=== PATIENT | female | born 1970 | race Two or more races ===

== ENCOUNTER 2018-12-08 10:57 | Outpatient (CLI) | payer OTHER | END 2018-12-08 11:01 | disposition home or self-care (01) | LOC: SONOGRAMA 10:57 | DX: R22.40 Localized swelling, mass and lump, unspecified lower limb (principal) ==

== ENCOUNTER 2019-06-02 11:41 | Outpatient (CLI) | payer OTHER | END 2019-06-02 11:59 | disposition home or self-care (01) | LOC: SONOGRAMA 11:41 | DX: E04.1 Nontoxic single thyroid nodule (principal); Z87.891 Personal history of nicotine dependence ==

== ENCOUNTER → 2020-09-15 | Outpatient (CLI) | payer OTHER | END | disposition home or self-care (01) | LOC: RAD 10:47 | DX: M25.532 Pain in left wrist (principal) ==